=== PATIENT | female | born 1990 | race Caucasian/White ===

== ENCOUNTER 2017-03-07 19:15 | Emergency (ER) | payer SELFPAY ==
[~2017-03-07] VITALS: Ht 165.1 cm; Wt 63.5 kg
[~2017-03-07 19:15] MED LIST: ACET-2222 PO; ACHYD1T PO; CEFP500T4 PO; IBP600T1 PO; IBP800T PO; IBUP-1773 PO; OCP; OSLT75CRX PO; OXYC-12 PO; PREN-115 PO; PREN1TAB19 PO; PREN1TAB39 PO; SULF-222 PO
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
[2017-03-07 19:58] VITALS: BP 139/81
--- OUTSIDE RECORDS SUMMARY | 2017-03-08 09:27 | XMS REPORT | Continuity of Care Document ---
Author Author [facility] Address Unknown Phone Unavailable Allergies Active Description Code Type Severity Reaction Onset Reported/Identified Relationship to Patient Clinical Status Yes penicillin G [id number] Drug Allergy Unknown N/A 10/10/2006 Yes hydrocodone Drug Allergy N/A N/A 06/04/2009 Yes Penicillins Drug Allergy N/A N/A 06/04/2009 Medications Problems Date Dx Coded Attending Type Code Diagnosis Diagnosed By 04/04/2008 [facility]00 AN ANXIETY UNSPEC 06/04/2009 [facility] 614.3 ACUTE PARAMETRITIS AND PELVIC CELLULITIS 01/27/2010 [facility] V72.42 TEST POSITIVE RESULT 09/18/2010 Ot 650 09/18/2010 Ot V06.1 09/18/2010 Ot V06.4 09/18/2010 Ot V27.0 06/10/2012 Ot 664.81 06/10/2012 Ot V27.0 12/01/2012 Ot 632 06/22/2013 [facility] 296.32 MO DEPRESSIVE RECURRENT MODERATE 06/23/2013 ADRIANNA ARANGO DO Ot 462 06/23/2013 ADRIANNA ARANGO DO Ot 780.60 10/07/2014 Ot 649.53 10/07/2014 Ot 649.63 10/07/2014 Ot 649.63 10/07/2014 Ot 649.63 10/07/2014 Ot 632 10/07/2014 Ot 632 10/07/2014 ROSEANNE ZAYAS APRN Ot 487.1 10/07/2014 ROSEANNE ZAYAS APRN Ot 599.0 10/07/2014 ROSEANNE ZAYAS APRN Ot 786.2 12/19/2014 Ot 632 12/19/2014 Ot 649.53 12/19/2014 Ot 649.63 12/19/2014 Ot 649.63 12/19/2014 Ot 649.63 12/19/2014 Ot 632 12/19/2014 Ot 632 02/24/2015 Ot 649.53 02/24/2015 Ot 649.63 02/24/2015 Ot 649.63 02/24/2015 Ot 649.63 02/24/2015 Ot 632 02/24/2015 Ot 632 03/21/2015 Ot 649.53 03/21/2015 Ot 649.63 03/21/2015 Ot 649.63 03/21/2015 Ot 649.63 03/21/2015 Ot 632 03/21/2015 Ot 632 03/21/2015 JULIO CESAR TEJADA MD Ot V22.1 03/21/2015 Ot 632 03/21/2015 JULIO CESAR TEJADA MD Ot V22.1 04/09/2015 Ot 649.53 04/09/2015 Ot 649.63 04/09/2015 Ot 649.63 04/09/2015 Ot 649.63 04/09/2015 Ot 632 04/09/2015 Ot 632 04/09/2015 JULIO CESAR TEJADA MD Ot V22.1 04/16/2015 JULIO CESAR TEJADA MD Ot V22.1 04/29/2015 Ot 649.53 04/29/2015 Ot 649.63 04/29/2015 Ot 649.63 04/29/2015 Ot 649.63 04/29/2015 Ot 632 04/29/2015 Ot 632 04/29/2015 JULIO CESAR TEJADA MD Ot V22.1 05/09/2015 JULIO CESAR TEJADA MD Ot V28.81 08/27/2015 JULIO CESAR TEJADA MD Ot O36.8130 08/27/2015 JULIO CESAR TEJADA MD Ot Z3A.36 09/13/2015 JULIO CESAR TEJADA MD Ot O47.1 09/13/2015 JULIO CESAR TEJADA MD Ot Z3A.39 09/17/2015 JULIO CESAR TEJADA MD Ot O48.0 09/17/2015 JULIO CESAR TEJADA MD Ot Z37.0 09/17/2015 JULIO CESAR TEJADA MD Ot Z3A.40 Procedures Code [place] [address] PSYCH DIAGNOSTIC EVALUATION 06/22/2013 93976 PSYCH DIAGNOSTIC EVALUATION 06/26/2013 Results Encounters ACCT No. Visit Date/Time Discharge Status Pt. Type Provider Facility Loc./Unit Complaint [id number] 06/22/2013 15:01:00 06/22/2013 23: 59:59 [facility] Outpatient THIERRY SUTTON
== END 2017-03-07 19:58 | disposition home or self-care (01) ==
LOC: EDUNIT# 19:15 → ER 19:18
DX: A64 Unspecified sexually transmitted disease (principal); F17.210 Nicotine dependence, cigarettes, uncomplicated; Z87.42 Personal history of other diseases of the female genital tract; Z88.0 Allergy status to penicillin
CPT/HCPCS: 99282

== ENCOUNTER 2019-07-09 13:13 | Emergency (ER) | payer SELFPAY ==
[~2019-07-09] VITALS: Ht 165 cm; Wt 61.3 kg
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
[2019-07-09 14:21] LABS: BASOPHILS % (AUTO) 1 % (0-10); EOSINOPHILS # (AUTO) 0.2 10^3/uL (0.0-0.3); EOSINOPHILS % (AUTO) 3 % (0-10); HEMATOCRIT 40 % (35-52); HEMOGLOBIN 13.5 G/DL (11.5-16.0); LYMPHOCYTES # (AUTO) 2.7 X 10^3 (1.0-4.0); LYMPHOCYTES % (AUTO) 33 % (12-44); MEAN CORPUSCULAR HEMOGLOBIN 31 PG (25-34); MEAN CORPUSCULAR HGB CONC 34 G/DL (32-36); MEAN CORPUSCULAR VOLUME 91 FL (80-99); MEAN PLATELET VOLUME 10.7 FL (7.4-10.4); MONOCYTES # (AUTO) 0.7 X 10^3 (0.0-1.0); MONOCYTES % (AUTO) 9 % (0-12); NEUTROPHILS # (AUTO) 4.4 X 10^3 (1.8-7.8); NEUTROPHILS % (AUTO) 55 % (42-75); PLATELET COUNT 216 10^3/uL (130-400); RED CELL DISTRIBUTION WIDTH 12.9 % (10.0-14.5)
[2019-07-09 14:28] LABS: BILIRUBIN,URINE NEGATIVE (NEGATIVE); CLARITY,URINE CLEAR; COLOR,URINE YELLOW; GLUCOSE, URINE (UA) NEGATIVE (NEGATIVE); KETONES,URINE NEGATIVE (NEGATIVE); LEUKOCYTE ESTERASE ,URINE 1+ (NEGATIVE); NITRITE,URINE NEGATIVE (NEGATIVE); PH,URINE 6.5 (5-9); PROTEIN,URINE 1+ (NEGATIVE)
[2019-07-09 14:40] LABS: AMPHETAMINE SCREEN, URINE POSITIVE (NEGATIVE); BARBITURATE SCREEN URINE NEGATIVE (NEGATIVE); BENZODIAZEPINES SCREEN URINE POSITIVE (NEGATIVE); CANNABINOID SCREEN, URINE POSITIVE (NEGATIVE); COCAINE SCREEN URINE NEGATIVE (NEGATIVE); METHADONE STAT NEGATIVE (NEGATIVE); METHAMPHETAMINE SCREEN URINE S POSITIVE (NEGATIVE); OPIATE SCREEN URINE NEGATIVE (NEGATIVE); OXYCODONE STAT NEGATIVE (NEGATIVE); PROPOXYPHENE STAT NEGATIVE (NEGATIVE); TRICYCLIC ANTIDEPRESSANTS SCRE POSITIVE (NEGATIVE)
[2019-07-09 14:43] LABS: BACTERIA,URINE NEGATIVE /HPF; WBC,URINE 0-2 /HPF
[2019-07-09 14:46] LABS: ALANINE AMINOTRANSFERASE 20 U/L (0-55); ALBUMIN 4.3 GM/DL (3.2-4.5); ALKALINE PHOSPHATASE 59 U/L (40-136); BILIRUBIN,TOTAL 0.5 MG/DL (0.1-1.0); BUN/CREATININE RATIO 13; CALCIUM 9.3 MG/DL (8.5-10.1); CARBON DIOXIDE 23 MMOL/L (21-32); CHLORIDE 103 MMOL/L (98-107); GFR ESTIMATED > 60; GLUCOSE 98 MG/DL (70-105); POTASSIUM 3.3 MMOL/L (3.6-5.0); SODIUM 139 MMOL/L (135-145); TOTAL PROTEIN 6.9 GM/DL (6.4-8.2)
--- NOTE | 2019-07-09 15:10 | NUR ---
Patient moved from ER 3 to room 9 to perform pelvic exam.
--- NOTE | 2019-07-09 15:23 | Diagnostic Imaging Report ---
PROCEDURE: CT head without contrast. TECHNIQUE: Multiple contiguous axial images were obtained through the brain without the use of intravenous contrast. Auto Exposure Controls were utilized during the CT exam to meet ALARA standards for radiation dose reduction. INDICATION: Tenderness in the ears as well as fluid in the ears. COMPARISON: No prior studies are available for comparison. FINDINGS: The ventricles and sulci are within normal limits. No sulcal effacement or midline shift is detected. No acute intra-axial or extra-axial hemorrhage is identified. Cisterns are patent. Visualized paranasal sinuses are clear. IMPRESSION: No acute intracranial process is detected. Dictated by: Dictated on workstation # [id number]
--- NOTE | 2019-07-09 16:24 | NUR ---
Patient awake and alert, talking on cell phone. Patient denies any needs at this time.
[2019-07-09] MEDS ORDERED: AZITHROMYCIN 250 MG TAB (ZITHROMAX) PO STA (16:26)
[2019-07-09] MEDS ORDERED: WATER IV ONE (16:30)
[2019-07-09] MEDS ORDERED: CEFTRIAXONE FOR IV ONE (16:30)
[2019-07-09] MEDS ORDERED: METR-145 PO (16:35)
[2019-07-09 17:07] VITALS: BP 115/92
== END 2019-07-09 17:04 | disposition home or self-care (01) ==
LOC: EDUNIT# 13:13 → ER 13:14
DX: S09.90XA Unspecified injury of head, initial encounter (principal); S09.301A Unspecified injury of right middle and inner ear, initial encounter; N76.0 Acute vaginitis; B96.89 Other specified bacterial agents as the cause of diseases classified elsewhere; F32.9 Major depressive disorder, single episode, unspecified; N72 Inflammatory disease of cervix uteri; F41.9 Anxiety disorder, unspecified; Z88.0 Allergy status to penicillin; Z77.22 Contact with and (suspected) exposure to environmental tobacco smoke (acute) (chronic); Z98.51 Tubal ligation status; Z82.49 Family history of ischemic heart disease and other diseases of the circulatory system; Y04.0XXA Assault by unarmed brawl or fight, initial encounter
CPT/HCPCS: 36415; 70450; 80053; 80306; 81000; 84703; 85025; 87070; 87077; 87205; 87210; 87491; 87591; 96374

== ENCOUNTER 2019-12-30 13:54 | Emergency (ER) | payer SELFPAY ==
[~2019-12-30] VITALS: Ht 165 cm; Wt 61.2 kg
[~2019-12-30 13:54] MED LIST changes: +METR-145 PO
--- OUTSIDE RECORDS SUMMARY | 2019-12-30 14:00 | XMS REPORT ---
Author Author Mojgan SWANN Organization [facility] Address [address] [place] [address] Care Team Providers Care Tax Economist Name Role Phone HUNTER SWANN Unavailable PROBLEMS Type Condition ICD9-CM Code [id number] Code Onset Dates Condition S tatus SNOMED Code Problem Major depressive disorder, recurrent episode, moderate 296 .32 Active [id number] ALLERGIES No Information ENCOUNTERS Encounter Location Date Diagnosis [facility] [address] [address] January, Exposure to sexually transmi tted disease (STD) Z20.2 [facility] [address] [address] January, Dysuria R30.0 and Acute cyst itis with hematuria N30.01 [facility] [address] [address] Nov, [facility] [address] [address] Nov, Dysuria R30.0 and Exposure t o sexually transmitted disease (STD) Z20.2 [facility] [address] [address] Aug, [facility] [address] [id number] Aug, [facility] [address] [address] Jul, [facility] [address] [address] Jul, [facility] [address] [facility] [id number] [address] [place] [address] Jul, [facility] [address] [facility] [id number] [address] [place] [id number] Jul, [facility] [address] [facility] [id number] [address] [place] [id number] Jun, [facility] [address] [facility] [id number] [address] [place] [id number] Jun, IMMUNIZATIONS No Known Immunizations SOCIAL HISTORY Never Assessed REASON FOR VISIT Lab (walk-in)--[facility] PLAN OF CARE Activity Details Pending Test SYPHILIS ([facility]) VITAL SIGNS MEDICATIONS Unknown Medications RESULTS Name Result Date Reference Range HEP C ANTIBODY ([facility]) 2018-01-11 RESULTS non-reactive HIV ([facility]) 2018-01-11 HEP B SURFACE ANTIGEN ([facility]) 2018-01-11 HEP B ANTIBODY non-reactive HEP B ANTIBODY ([facility]) HEP B ANTIBODY ([facility]) PROCEDURES Procedure Date Ordered Result Body Site No Charge January 11, 2018 VENIPUNCT, ROUTINE* January 11, 2018 INSTRUCTIONS MEDICATIONS ADMINISTERED No Known Medications
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
--- OUTSIDE RECORDS SUMMARY | 2019-12-30 14:00 | XMS REPORT ---
Author Author Mojgan RANGEL Organization [facility] Address [address] [place] [address] Care Team Providers Care Air And Water Filler Name Role Phone AFIA RANGEL Unavailable PROBLEMS Type Condition ICD9-CM Code [id number] Code Onset Dates Condition S tatus SNOMED Code Problem Major depressive disorder, recurrent episode, moderate 296 .32 Active [id number] ALLERGIES No Known Allergies ENCOUNTERS Encounter Location Date Diagnosis [facility] [address] [address] January, Exposure to sexually transmi tted disease (STD) Z20.2 [facility] [address] [address] January, Dysuria R30.0 and Acute cyst itis with hematuria N30.01 [facility] [address] [address] Nov, [facility] [address] [address] Nov, Dysuria R30.0 and Exposure t o sexually transmitted disease (STD) Z20.2 [facility] [address] [place] [place] [id number] [address] [place] [phone] Aug, [facility] [address] [address] Aug, [facility] [address] [id number] [address] [place] [phone] Jul, [facility] [address] [id number] [address] [place] [phone] Jul, [facility] [id number] [place] [phone] Jul, [facility] [address] [facility] [id number] [address] [place] [phone] Jul, [facility] [address] [facility] [id number] [address] [place] [phone] Jun, [facility] [address] [facility] [id number] [address] [place] [phone] Jun, IMMUNIZATIONS No Known Immunizations SOCIAL HISTORY Never Assessed REASON FOR VISIT UTI Pt c/o urinary frequency and pain with urination JEAN PIERRE Schofield PLAN OF CARE Activity Details Follow Up prn Reason: VITAL SIGNS Height 65 in 2018-01-11 Weight 153.4 lbs 2018-01-11 Temperature 97.8 degrees Fahrenheit 2018-01-11 Heart Rate 80 bpm 2018-01-11 Respiratory Rate 18 2018-01-11 BMI 25.52 kg/m2 2018-01-11 Blood pressure systolic 118 mmHg 2018-01-11 Blood pressure diastolic 80 mmHg 2018-01-11 MEDICATIONS Medication Instructions Dosage Frequency Start Date End Date Duration S tatus Macrobid 100 mg Orally every 12 hrs 1 capsule with food 12h January, January, 03 days Active RESULTS No Results PROCEDURES Procedure Date Ordered Result Body Site URINALYSIS, AUTO, W/O SCOPE January 11, 2018 URINE CULTURE/COLONY COUNT January 11, 2018 INSTRUCTIONS MEDICATIONS ADMINISTERED No Known Medications
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
[2019-12-30 14:13] LABS: BASOPHILS # (AUTO) 0.1 10^3/uL (0.0-0.1); BASOPHILS % (AUTO) 1 % (0-10); EOSINOPHILS # (AUTO) 0.1 10^3/uL (0.0-0.3); EOSINOPHILS % (AUTO) 1 % (0-10); HEMATOCRIT 39 % (35-52); HEMOGLOBIN 13.4 G/DL (11.5-16.0); LYMPHOCYTES # (AUTO) 2.1 X 10^3 (1.0-4.0); LYMPHOCYTES % (AUTO) 19 % (12-44); MEAN CORPUSCULAR HEMOGLOBIN 31 PG (25-34); MEAN CORPUSCULAR HGB CONC 34 G/DL (32-36); MEAN CORPUSCULAR VOLUME 91 FL (80-99); MONOCYTES # (AUTO) 1.1 X 10^3 (0.0-1.0); MONOCYTES % (AUTO) 10 % (0-12); NEUTROPHILS # (AUTO) 7.3 X 10^3 (1.8-7.8); NEUTROPHILS % (AUTO) 69 % (42-75); PLATELET COUNT 218 10^3/uL (130-400); RED CELL DISTRIBUTION WIDTH 12.9 % (10.0-14.5); WHITE BLOOD COUNT 10.6 10^3/uL (4.3-11.0)
[2019-12-30] MEDS ORDERED: fentaNYL INJECTION 100 MCG/2 ML AMP IVP ONE (14:15)
[2019-12-30] MEDS ORDERED: LACTATED RINGERS 1,000 ML IV SCH ×2 (14:15→14:45)
[2019-12-30 14:21] LABS: ALBUMIN 4.2 GM/DL (3.2-4.5); CHLORIDE 107 MMOL/L (98-107); POTASSIUM 3.9 MMOL/L (3.6-5.0); SODIUM 140 MMOL/L (135-145)
[2019-12-30 14:23] LABS: BILIRUBIN,URINE NEGATIVE (NEGATIVE); CLARITY,URINE SL CLOUDY; COLOR,URINE YELLOW; GLUCOSE, URINE (UA) NEGATIVE (NEGATIVE); KETONES,URINE 2+ (NEGATIVE); LEUKOCYTE ESTERASE ,URINE TRACE (NEGATIVE); NITRITE,URINE NEGATIVE (NEGATIVE); PH,URINE 5.5 (5-9); PROTEIN,URINE NEGATIVE (NEGATIVE)
[2019-12-30 14:24] LABS: GLUCOSE 78 MG/DL (70-105); TOTAL PROTEIN 7.1 GM/DL (6.4-8.2)
[2019-12-30 14:25] LABS: CARBON DIOXIDE 19 MMOL/L (21-32)
[2019-12-30 14:26] LABS: BILIRUBIN,TOTAL 0.7 MG/DL (0.1-1.0)
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
[2019-12-30 14:27] LABS: ALKALINE PHOSPHATASE 54 U/L (40-136)
[2019-12-30 14:28] LABS: CREATININE SERUM 0.71 MG/DL (0.60-1.30); GFR ESTIMATED > 60
[2019-12-30 14:29] LABS: BUN/CREATININE RATIO 14
[2019-12-30 14:30] LABS: ALANINE AMINOTRANSFERASE 36 U/L (0-55)
[2019-12-30 14:31] LABS: CREATINE KINASE 2019 U/L (29-168); LIPASE 8 U/L (8-78)
[2019-12-30 14:33] LABS: AMPHETAMINE SCREEN, URINE POSITIVE (NEGATIVE); BARBITURATE SCREEN URINE NEGATIVE (NEGATIVE); BENZODIAZEPINES SCREEN URINE NEGATIVE (NEGATIVE); CANNABINOID SCREEN, URINE POSITIVE (NEGATIVE); COCAINE SCREEN URINE NEGATIVE (NEGATIVE); METHADONE STAT NEGATIVE (NEGATIVE); METHAMPHETAMINE SCREEN URINE S POSITIVE (NEGATIVE); OPIATE SCREEN URINE NEGATIVE (NEGATIVE); OXYCODONE STAT NEGATIVE (NEGATIVE); PROPOXYPHENE STAT NEGATIVE (NEGATIVE); TRICYCLIC ANTIDEPRESSANTS SCRE NEGATIVE (NEGATIVE)
[2019-12-30 14:38] LABS: BACTERIA,URINE NEGATIVE /HPF; WBC,URINE 0-2 /HPF
[2019-12-30] MEDS ORDERED: HYDR-3870 PO (14:55)
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
[2019-12-30] MEDS ORDERED: NS 100 ML (IVPB) BAG IV ONE (15:00)
[2019-12-30] MEDS ORDERED: HOLD METFORMIN - RECEIVED CONTRAST 20 ML VIAL IV SCH (15:00)
[2019-12-30] MEDS ORDERED: IOHEXOL 350 MG/ML 100 ML (OMNIPAQUE 350) VIAL IV ONE (15:00)
[2019-12-30] MEDS ORDERED: HYDROcodone/APAP 5 MG/325 MG (LORTAB) TAB PO ONE (15:00)
--- NOTE | 2019-12-30 15:52 | NUR ---
Patient sleeping. Fluids infusing. No signs of distress present.
[2019-12-30 16:12] VITALS: BP 108/72
== END 2019-12-30 16:13 | disposition home or self-care (01) ==
LOC: EDUNIT# 13:54 → ER 13:55
DX: S22.42XA Multiple fractures of ribs, left side, initial encounter for closed fracture (principal); F15.90 Other stimulant use, unspecified, uncomplicated; R74.8 Abnormal levels of other serum enzymes; Z88.0 Allergy status to penicillin; Z77.22 Contact with and (suspected) exposure to environmental tobacco smoke (acute) (chronic); Z82.49 Family history of ischemic heart disease and other diseases of the circulatory system; X58.XXXA Exposure to other specified factors, initial encounter
CPT/HCPCS: 36415; 70450; 71260; 72125; 73110; 74177; 80053; 80306; 80320; 81000; 82550; 83690; 84703; 85025

== ENCOUNTER 2021-12-26 20:17 | Emergency (ER) | payer SELFPAY ==
[~2021-12-26] VITALS: Ht 165 cm; Wt 64.8 kg
[~2021-12-26 20:17] MED LIST changes: +HYDR-3870 PO
[2021-12-26 20:31] VITALS: BP 112/81
[2021-12-26] MEDS ORDERED: NAPROXEN 250 MG (NAPROSYN) TABLET PO STA (20:52)
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
== END 2021-12-26 21:00 | disposition home or self-care (01) ==
LOC: EDUNIT# 20:17 → ER 20:20
DX: S06.0X0A Concussion without loss of consciousness, initial encounter (principal); S00.03XA Contusion of scalp, initial encounter; R40.2410 Glasgow coma scale score 13-15, unspecified time; Y04.2XXA Assault by strike against or bumped into by another person, initial encounter
CPT/HCPCS: 99283